=== PATIENT | male | born 1975 | race Caucasian/White ===

== ENCOUNTER 2018-01-09 12:58 | Emergency (ER) | payer BC, OTHER ==
[2018-01-09] MEDS ORDERED: cloNIDine 0.1 MG Tab PO ONE (13:54)
[2018-01-09] MEDS ORDERED: Lisinopril 20 MG Tab PO ONE (13:54)
[2018-01-09] MEDS ORDERED: amLODIPine 5 MG Tab PO ONE (13:54)
--- NOTE | 2018-01-09 13:59 | EDM.PDOC ---
ED HPI GENERAL MEDICAL PROBLEM - General Chief Complaint: Cardiovascular Problem Stated Complaint: HIGH BP Time Seen by Provider: 01/09/18 13:27 - History of Present Illness INITIAL COMMENTS - FREE TEXT/NARRATIVE: This is a 42-year-old male who has a previous history of hypertension and diabetes, accompanied by presented today to the emergency department for prescription for his blood pressure medication. He stated that he has been taking amlodipine, lisinopril, chlorthalidone, metformin for his underlying medical condition or high blood pressure and diabetes, however he ran out of those prescription approximately 2 weeks ago and tried to find a new provider in town. He has had an appointment with his primary care provider today when he was at the clinic his blood pressure reading was high therefore his PCP sent him to the emergency department for further evaluation. Currently patient denies any complaint. He denies any chest pain or shortness of breath, headache , visual changes, weakness, numbness or tingling, back pain, abdominal pain, nausea or vomiting. He denies any other concerns at this time. - Related Data Allergies Allergy/AdvReac Type Severity Reaction Status Date / Time No Known Allergies Allergy Verified 01/09/18 13:12 Home Meds: Home Meds Aspirin [Halfprin] 81 mg PO DAILY 01/09/18 [History] Chlorthalidone 25 mg PO DAILY 01/09/18 [History] Chlorthalidone 25 mg PO DAILY 30 Days #30 tab 01/09/18 [Rx] Lisinopril 40 mg PO DAILY 01/09/18 [History] Lisinopril [Zestril] 40 mg PO DAILY 30 Days #30 tablet 01/09/18 [Rx] Omeprazole 40 mg PO DAILY 01/09/18 [History] amLODIPine Besylate [Norvasc] 10 mg PO DAILY 01/09/18 [History] amLODIPine [Norvasc] 10 mg PO DAILY 30 Days #30 tablet 01/09/18 [Rx] metFORMIN [Glucophage XR] 500 mg PO BID 01/09/18 [History] metFORMIN [Glucophage XR] 500 mg PO BIDMEALS 30 Days #60 tab.er 01/09/18 [Rx] Past Medical History Cardiovascular History: Reports: Hypertension Gastrointestinal History: Reports: Diverticulosis, GERD Neurological History: Reports: Other (See Below) Other Neuro History: sleep apnea Endocrine/Metabolic History: Reports: Diabetes, Type II - Past Surgical History GI Surgical History: Reports: Appendectomy Male Surgical History: Reports: Vasectomy Social & Family History - Tobacco Use Smoking Status *Q: Current Every Day Smoker Years of Tobacco use: 25 Packs/Tins Daily: 1 - Caffeine Use Caffeine Use: Reports: Coffee, Soda - Recreational Drug Use Recreational Drug Use: No ED ROS GENERAL - Review of Systems Review Of Systems: ROS reveals no pertinent complaints other than HPI. ED EXAM, GENERAL - Physical Exam Exam: See Below Exam Limited By: No Limitations General Appearance: Alert, WD/WN, No Apparent Distress Eye Exam: Bilateral Eye: EOMI, Normal Inspection, PERRL Ears: Normal External Exam, Normal Canal, Hearing Grossly Normal, Normal TMs Ear Exam: Bilateral Ear: Auricle Normal, Canal Normal, TM normal Nose: Normal Inspection Throat/Mouth: Normal Inspection, Normal Lips, Normal Teeth, Normal Gums, Normal Oropharynx, Normal Voice, No Airway Compromise Head: Atraumatic, Normocephalic Neck: Normal Inspection, Supple, Non-Tender, Full Range of Motion Respiratory/Chest: No Respiratory Distress, Lungs Clear, Normal Breath Sounds, No Accessory Muscle Use Cardiovascular: Normal Peripheral Pulses, Regular Rate, Rhythm, No Edema, No Gallop, No JVD, No Murmur, No Rub GI/Abdominal: Normal Bowel Sounds, Soft, No Organomegaly Back Exam: Normal Inspection, Full Range of Motion, NT Extremities: Normal Inspection, Normal Range of Motion, Non-Tender, Normal Capillary Refill, No Pedal Edema Neurological: Alert, Oriented, Normal Cognition Psychiatric: Normal Affect, Normal Mood Skin Exam: Warm, Dry, Intact, Normal Color, No Rash Course - Vital Signs Last Recorded V/S: Last Vital Signs Temp 37.1 C 01/09/18 13:10 Pulse 95 01/09/18 13:10 Resp 20 01/09/18 13:10 BP 191/114 H 01/09/18 14:05 Pulse Ox 98 01/09/18 13:10 - Orders/Labs/Meds Meds: Medications Discontinued Medications Generic Name Dose Route Start Last Admin Trade Name Mikel PRN Reason Stop Dose Admin Amlodipine Besylate 10 mg 01/09/18 13:54 01/09/18 14:05 Norvasc PO 01/09/18 13:55 10 mg ONETIME ONE Administration Clonidine HCl 0.1 mg 01/09/18 13:54 01/09/18 14:05 Catapres PO 01/09/18 13:55 0.1 mg ONETIME ONE Administration Lisinopril 40 mg 01/09/18 13:54 01/09/18 14:05 Prinivil PO 01/09/18 13:55 40 mg ONETIME ONE Administration - Re-Assessments/Exams Free Text/Narrative Re-Assessment/Exam: 01/09/18 15:00. At this time patient has been reevaluated at bedside and checked his blood pressure multiple times which showed systolic blood pressure ranges from 165-175 and diastolic showed ranges from 100-110. This result has been discussed with patient and family member and explained that patient has been off the medication for at least 2 weeks and blood pressure elevation is the results all not taking medication. I did provide prescriptions for patient daily regimen for at 30 days so he will be able to refill them today and start taking the medication on regular basis from tomorrow. I also advised patient to make an appointment with primary care provider as soon as possible for further evaluation and better management of blood pressure. Patient verbalized understanding of the given instruction and agrees to comply. Departure - Departure Time of Disposition: 15:38 Disposition: Home, Self-Care 01 Condition: Good Clinical Impression: Hypertension, Diabetes, Medication refill Prescriptions: amLODIPine [Norvasc] 10 mg PO DAILY 30 Days #30 tablet Chlorthalidone 25 mg PO DAILY 30 Days #30 tab Lisinopril [Zestril] 40 mg PO DAILY 30 Days #30 tablet metFORMIN [Glucophage XR] 500 mg PO BIDMEALS 30 Days #60 tab.er Instructions: Type 2 Diabetes Mellitus, Diagnosis, Adult, Medicine Refill at the Emergency Department Referrals: Mi Sultana MD [Primary Care Provider] - 3 Days (Please call your primary care provider within 3-5 days to make an appointment for continual care) Forms: ED Department Discharge
== END 2018-01-09 15:54 | disposition home or self-care (01) ==
LOC: SUPCPDRO 12:58 → JD.ED 12:58
DX: I10 Essential (primary) hypertension (principal); E11.9 Type 2 diabetes mellitus without complications; Z79.84 Long term (current) use of oral hypoglycemic drugs; Z79.899 Other long term (current) drug therapy; F17.210 Nicotine dependence, cigarettes, uncomplicated; Z79.82 Long term (current) use of aspirin
CPT/HCPCS: 99283; A9270